=== PATIENT | female | born 1980 | race Hispanic/Latino ===

== ENCOUNTER 2019-08-23 09:05 | Emergency (ER) | payer BC ==
[2019-08-23] MEDS ORDERED: DEXAMETHASONE SOD PHOSPHATE 10MG/ML 1ML VIAL ONE (09:53)
[2019-08-23 10:05] LABS: BASOPHILS % (AUTO) 0.3 % (0.0-5.0); EOSINOPHILS % (AUTO) 0.6 % (0.0-8.0); HEMATOCRIT 33.5 % (36-48); MEAN CORPUSCULAR HEMOGLOBIN 22.2 pg (27.0-33.0); MEAN CORPUSCULAR HGB CONC 30.7 g/dL (32.0-36.0); MEAN CORPUSCULAR VOLUME 72.2 fL (79-99); MONOCYTES % (AUTO) 4.7 % (3.0-13.0); NEUTROPHILS % (AUTO) 74.2 % (40.0-77.0); PLATELET COUNT (AUTO) 305 K/uL (130-400); RED BLOOD CELL COUNT(AUTO) 4.64 MIL/uL (4.00-5.50); RED CELL DISTRIBUTION WIDTH 14.8 % (11.0-15.5); WHITE BLOOD COUNT (AUTO) 8.7 K/uL (4.8-10.8)
[2019-08-23] MEDS ORDERED: IPRATROPIUM/ALBUTEROL SULFATE 3 ML SOLUTION IH ONE (10:11)
[2019-08-23 10:16] LABS: CREATININE 0.7 mg/dL (0.5-1.5); POTASSIUM 3.7 mmol/L (3.5-5.1)
[2019-08-23 10:20] LABS: ALBUMIN 3.3 g/dL (3.5-5.0); BILIRUBIN,TOTAL 0.4 mg/dL (0.2-1.0); TOTAL PROTEIN, SERUM 7.5 g/dL (6.0-8.3)
[2019-08-23 10:56] LABS: B-TYPE NATRIURETIC PEPTIDE 7 pg/mL (0-100)
== END 2019-08-23 12:08 | disposition home or self-care (01) ==
LOC: EDH 09:05
DX: R06.00 Dyspnea, unspecified (principal)
CPT/HCPCS: 36415; 71045; 80053; 82550; 83880; 84484; 85025; 93005; 94640; 96374; 99285; J1100

== ENCOUNTER 2020-09-14 18:09 | Emergency (ER) | payer BC ==
[~2020-09-14] VITALS: Ht 154.9 cm; Wt 97.5 kg
[2020-09-14 18:10] VITALS: BP 124/74
[2020-09-14 20:08] VITALS: BP 135/70
[2020-09-14 21:12] VITALS: BP 136/69
[2020-09-14] MEDS ORDERED: LIDOCAINE HCL 2% JELLY 5 ML ONE (21:23)
[2020-09-14] MEDS ORDERED: HYDROCORTISONE 25 MG SUPPOSITORY PR SCH (21:30)
[2020-09-14] MEDS ORDERED: KETOROLAC 30MG VIAL (30MG/ML) IM ONE (21:45)
[2020-09-14] MEDS ORDERED: HYDR25SU38 RC (22:30)
== END 2020-09-14 22:45 | disposition home or self-care (01) ==
LOC: EDH 18:09 → EEVIPCON 18:09 → EDH 22:45
DX: K64.4 Residual hemorrhoidal skin tags (principal); K92.1 Melena; Z98.890 Other specified postprocedural states
CPT/HCPCS: 96372; 99284; J1885